=== PATIENT | male | born 1960 | race Caucasian/White ===

== ENCOUNTER 2017-02-26 14:09 | Outpatient (CLI) | payer OTHER ==
--- NOTE | 2017-02-26 16:07 | RAD ---
RIGHT KNEE TWO VIEW 02/26/17 HISTORY: Disability evaluation, arthritis. COMPARISON: 2008 FINDINGS: No acute fracture or malalignment. No significant joint effusion. There is small lateral compartment osteophytes. IMPRESSION: Very mild low grade lateral compartment osteoarthritic disease. POS: [facility]
== END 2017-02-26 14:10 | disposition home or self-care (01) ==
LOC: NAV RAD 14:09
PROVIDERS: ATTEND Family Medicine
DX: Z02.71 Encounter for disability determination (principal); M17.11 Unilateral primary osteoarthritis, right knee